=== PATIENT | female | born 1990 | race Two or more races ===

== ENCOUNTER 2024-04-20 13:20 | Outpatient (CLI) | payer OTHER ==
[~2024-04-20 13:20] MED LIST: IRON325 MG PO; PRENA1 TRUE CO1 EACH PO
== END 2024-04-20 13:22 | disposition home or self-care (01) ==
LOC: PRENATAL 13:20
PROVIDERS: ATTEND Obstetrics & Gynecology Maternal & Fetal Medicine
DX: O36.80X0 Pregnancy with inconclusive fetal viability, not applicable or unspecified (principal); Z36.82 Encounter for antenatal screening for nuchal translucency; O14.90 Unspecified pre-eclampsia, unspecified trimester; O34.80 Maternal care for other abnormalities of pelvic organs, unspecified trimester; Z3A.13 13 weeks gestation of pregnancy

== ENCOUNTER → 2024-06-12 12:47 | Outpatient (CLI) | payer OTHER | END | disposition home or self-care (01) | LOC: PRENATAL 12:47 | PROVIDERS: ATTEND Obstetrics & Gynecology Maternal & Fetal Medicine | DX: O44.00 Complete placenta previa NOS or without hemorrhage, unspecified trimester (principal); O09.529 Supervision of elderly multigravida, unspecified trimester; O14.90 Unspecified pre-eclampsia, unspecified trimester; O34.80 Maternal care for other abnormalities of pelvic organs, unspecified trimester; Z3A.19 19 weeks gestation of pregnancy ==

== ENCOUNTER → 2024-09-04 15:06 | Outpatient (CLI) | payer OTHER | END | disposition home or self-care (01) | LOC: PRENATAL 15:06 | PROVIDERS: ATTEND Obstetrics & Gynecology Maternal & Fetal Medicine | DX: O26.849 Uterine size-date discrepancy, unspecified trimester (principal); O36.8199 Decreased fetal movements, unspecified trimester, other fetus; O09.529 Supervision of elderly multigravida, unspecified trimester; O14.90 Unspecified pre-eclampsia, unspecified trimester; O34.80 Maternal care for other abnormalities of pelvic organs, unspecified trimester; Z3A.32 32 weeks gestation of pregnancy ==

== ENCOUNTER 2024-10-12 11:04 | Outpatient (CLI) | payer OTHER | END 2024-10-12 12:14 | disposition home or self-care (01) | LOC: NST 11:04 | PROVIDERS: ATTEND Specialist | DX: Z34.83 Encounter for supervision of other normal pregnancy, third trimester (principal) ==

== ENCOUNTER 2024-10-18 13:07 | Inpatient (IN) | payer OTHER ==
[~2024-10-18] VITALS: Ht 157.5 cm; Wt 2.3 kg
[2024-10-20 05:20] VITALS: BP 125/87; O2SAT 97
[2024-10-20] MEDS ORDERED: CEFAZOLIN SODIUM 1,000 MG VIAL ONE ×2 (05:37→13:43)
[2024-10-20] MEDS ORDERED: CEFAZOLIN SODIUM 1,000 MG VIAL IV ONE (06:15)
[2024-10-20] MEDS ORDERED: RINGERS SOLUTION,LACTATED 1,000 ML IV SCH (06:15)
[2024-10-20 06:40] VITALS: BP 121/84; O2SAT 98
[2024-10-20] MEDS ORDERED: ERYTHROMYCIN BASE OPHT 1GM EACH TUBE OP ONE (07:05)
[2024-10-20] MEDS ORDERED: OXYTOCIN 10 UNITS/ML VIAL ONE (07:05)
[2024-10-20] MEDS ORDERED: AMPICILLIN SODIUM 1,000 MG VIAL ONE (07:32)
[2024-10-20] MEDS ORDERED: MORPHINE SULFATE 4 MG/ML CARTRIDGE IV PRN (09:15)
[2024-10-20] MEDS ORDERED: MORPHINE SULFATE 4 MG/ML VIAL IV ONE ×2 (10:20→12:30)
[2024-10-20] MEDS ORDERED: CEFAZOLIN SODIUM 1,000 MG VIAL IV SCH (14:00)
[2024-10-20 14:36] VITALS: BP 140/82
[2024-10-20 15:42] VITALS: BP 143/88
[2024-10-20 20:17] VITALS: BP 129/85
[2024-10-21] VITALS: BP 122/80
[2024-10-21 02:06] LABS: HEMATOCRIT 37.3 % (36.0-45.00); HEMOGLOBIN 12.3 g/dL (12.0-15.00); MEAN CELL VOLUME 80.4 fL (80.00-100.00); MEAN CORPUSCULAR HEMOGLOBIN 26.5 pg (27.00-32.0); PLATELET COUNT 180 K/uL (150-450); RED BLOOD COUNT 4.64 M/uL (4.00-6.00); RED CELL DISTRIBUTION WIDTH 14.1 % (11.5-14.5)
[2024-10-21 07:49] VITALS: BP 132/89
[2024-10-21] MEDS ORDERED: OxyCODONE HCL 5 MG TABLET (ROXICODONE) PO PRN (09:15)
[2024-10-21] MEDS ORDERED: ACETAMINOPHEN 500 MG GEL..CAP PO PRN (09:15)
[2024-10-21 16:36] VITALS: BP 118/76
[2024-10-22] VITALS: BP 124/83
[2024-10-22 01:45] LABS: HEMATOCRIT 28.7 % (36.0-45.00); MEAN CELL VOLUME 78.2 fL (80.00-100.00); MEAN CORPUSCULAR HEMOGLOBIN 26.7 pg (27.00-32.0); MEAN CORPUSCULAR HGB CONC 34.2 g/dl (32.0-36.0); PLATELET COUNT 206 K/uL (150-450); RED BLOOD COUNT 3.67 M/uL (4.00-6.00); RED CELL DISTRIBUTION WIDTH 14.5 % (11.5-14.5)
[2024-10-22 01:50] LABS: HEMOGLOBIN 9.8 g/dL (12.0-15.00)
[2024-10-22 08:17] VITALS: BP 125/85
[2024-10-22] MEDS ORDERED: CEFUROXIME AXETIL 500 MG TABLET PO SCH (10:42)
[2024-10-22] MEDS ORDERED: FERROUS SULFATE 325 MG TABLET.EC PO SCH (10:46)
[2024-10-23] VITALS: BP 117/75
[2024-10-23 08:39] LABS: HEMATOCRIT 28.3 % (36.0-45.00); HEMOGLOBIN 9.7 g/dL (12.0-15.00); MEAN CELL VOLUME 78.6 fL (80.00-100.00); MEAN CORPUSCULAR HEMOGLOBIN 26.9 pg (27.00-32.0); MEAN CORPUSCULAR HGB CONC 34.3 g/dl (32.0-36.0); PLATELET COUNT 281 K/uL (150-450); RED BLOOD COUNT 3.61 M/uL (4.00-6.00); RED CELL DISTRIBUTION WIDTH 14.9 % (11.5-14.5)
[2024-10-23 10:00] VITALS: BP 108/71
[2024-10-23 16:32] VITALS: BP 134/83
[2024-10-23 20:00] VITALS: BP 126/85
[2024-10-24 00:55] VITALS: BP 125/77
[2024-10-24 09:00] VITALS: BP 117/82
== END 2024-10-24 14:12 | disposition home or self-care (01) | DRG 787 ==
LOC: LDR 10-20 05:35 → OB/GYN 10-20 05:35 → LDR 10-20 06:37 → O/R 10-20 08:20 → LDR 10-20 09:15 → OB/GYN 10-20 13:10
PROVIDERS: ADMIT Specialist; ATTEND Specialist
PROC: 0UB10ZZ Excision of Left Ovary, Open Approach (ICD-10-PCS; 2024-10-20)
PROC: 4A1HXCZ Monitoring of Products of Conception, Cardiac Rate, External Approach (ICD-10-PCS; 2024-10-20)
PROC: 10D00Z1 Extraction of Products of Conception, Low, Open Approach (ICD-10-PCS; principal; 2024-10-20 07:00)
PROC: BW21ZZZ Computerized Tomography (CT Scan) of Abdomen and Pelvis (ICD-10-PCS; 2024-10-23)
PROC: BU4CZZZ Ultrasonography of Uterus and Ovaries (ICD-10-PCS; 2024-10-23)
DX: O34.211 Maternal care for low transverse scar from previous cesarean delivery (principal); O34.83 Maternal care for other abnormalities of pelvic organs, third trimester; N83.292 Other ovarian cyst, left side; O90.2 Hematoma of obstetric wound; L76.32 Postprocedural hematoma of skin and subcutaneous tissue following other procedure; O42.02 Full-term premature rupture of membranes, onset of labor within 24 hours of rupture; Z3A.38 38 weeks gestation of pregnancy; Z37.0 Single live birth